=== PATIENT | male | born 1990 ===

== ENCOUNTER 2018-01-11 11:14 | Emergency (ER) | payer SELFPAY ==
[2018-01-11 11:26] VITALS: RESP 16; TEMP 98.4; O2SAT 98
[2018-01-11 12:06] LABS: URINE BILIRUBIN NEGATIVE (NEGATIVE); URINE BLOOD NEGATIVE (NEGATIVE); URINE CLARITY Clear (Clear); URINE COLOR Straw (YELLOW); URINE GLUCOSE (UA) NORMAL (Normal); URINE LEUKOCYTE ESTERASE NEG Leu/uL (Negative); URINE PROTEIN NEGATIVE (NEGATIVE); URINE UROBILINOGEN NORMAL mg/dL (0.2-1.0)
[2018-01-11] MEDS ORDERED: cefTRIAXone (Rocephin) 250 mg Inj IM STA (12:22)
--- NOTE | 2018-01-11 12:26 | C.PDOC ---
History Of Present Illness 27-year-old male, comes in for evaluation of burning on urination and discomfort since yesterday. Patient admits to having unprotected sex the day prior to onset of symptoms. Patient notes a previous history of STDs. Otherwise , pt denies fever, chills, recent illness, sore throat, neck pain, cough, CP, SOB, abd. pain, V/D, back pain, hematuria, denies penile lesions, testicular pain or swelling. Ambulate to Ed for evaluation, not in any apparent distress. Time Seen by Provider: 01/11/18 11:24 Chief Complaint (Nursing): Male Genitourinary History Per: Patient History/Exam Limitations: no limitations Past Medical History Reviewed: Historical Data, Nursing Documentation, Vital Signs Vital Signs: Last Vital Signs Temp 98.4 F 01/11/18 11:24 Pulse 82 01/11/18 12:56 Resp 16 01/11/18 12:56 BP 120/81 01/11/18 12:56 Pulse Ox 98 01/11/18 12:56 - Medical History PMH: Asthma Family History: States: No Known Family Hx - Social History Hx Alcohol Use: No Hx Substance Use: No - Immunization History Hx Tetanus Toxoid Vaccination: No Hx Influenza Vaccination: No Hx Pneumococcal Vaccination: No Review Of Systems Constitutional: Negative for: Fever, Chills Gastrointestinal: Negative for: Nausea, Vomiting Genitourinary: Positive for: Dysuria. Negative for: Frequency, Hematuria, Penile Discharge, Rash, Penile Pain Skin: Negative for: Lesions Physical Exam - Physical Exam Appears: Non-toxic, No Acute Distress Skin: Normal Color, Warm, Dry, No Rash Eye(s): bilateral: PERRL Nose: No Flaring Oral Mucosa: Moist Throat: No Erythema Neck: Supple Gastrointestinal/Abdominal: Soft, No Tenderness, No Distention, No Guarding, No Rebound Back: No CVA Tenderness Male Genital: Other (refused) Extremity: No Tenderness, No Deformity, No Swelling Neurological/Psych: Oriented x3, Normal Speech ED Course And Treatment O2 Sat by Pulse Oximetry: 98 (RA) Pulse Ox Interpretation: Normal Progress Note: On re-evaluatio, pt is afebrile, hemodynamicalys table. Non- toxic. ENT: no acute findings. Abd: benig, (-) guarding, (-) rebound. back: ( -) CVA tenderness. UA results review and appears normal. GC- pending. Pt has clinical findings c/w urethritis. Pt request STD tx now. Pt advised to encourage partner to be checked and tx as well. return to ED f any worsening or new changes. Disposition - Disposition Referrals: [facility] [Outside] Disposition: HOME/ ROUTINE Disposition Time: 12:24 Condition: STABLE Additional Instructions: CONSIDER PARTNER TO BE CHECKED AND TREATED NEED FOLLOW UP WITH PMD IN 2-3 DAYS FOR RE-EVALUATION. RETURN TO ED IF ANY WORSENING OR NEW CHANGES. Instructions: Urethritis, STD Prevention Forms: [employer] ([place]) - Clinical Impression Clinical Impression: Urethritis - Scribe Statement The provider has reviewed the documentation as recorded by the Scribe (Kareem Malloy) All medical record entries made by the Scribe were at my direction and personally dictated by me. I have reviewed the chart and agree that the record accurately reflects my personal performance of the history, physical exam, medical decision making, and the department course for this patient. I have also personally directed, reviewed, and agree with the discharge instructions and disposition.
--- NOTE | 2018-01-11 12:27 | C.PDOC ---
Time Seen by Provider: 01/11/18 11:24 Chief Complaint (Nursing): Male Genitourinary Past Medical History Vital Signs: Last Vital Signs Temp 98.4 F 01/11/18 11:24 Pulse 81 01/11/18 11:24 Resp 16 01/11/18 11:24 BP 118/77 01/11/18 11:24 Pulse Ox 98 01/11/18 11:24 - Medical History PMH: Asthma - Social History Hx Alcohol Use: No Hx Substance Use: No - Immunization History Hx Tetanus Toxoid Vaccination: No Hx Influenza Vaccination: No Hx Pneumococcal Vaccination: No ED Course And Treatment O2 Sat by Pulse Oximetry: 98 Pulse Ox Interpretation: Normal Progress Note: On re-evaluatio, pt is afebrile, hemodynamicalys table. Non- toxic. ENT: no acute findings. Abd: benig, (-) guarding, (-) rebound. back: ( -) CVA tenderness. UA results review and appears normal. GC- pending. Pt has clinical ifndings c/w urethritis. Pt request STD tx now. Pt advised to encourage partner to be checked and tx as well. return to ED f any worsening or new changes. Disposition Counseled Patient/Family Regarding: Studies Performed, Diagnosis, Need For Followup - Disposition Referrals: [facility] [Outside] Disposition: HOME/ ROUTINE Disposition Time: 12:24 Condition: STABLE Additional Instructions: CONSIDER PARTNER TO BE CHECKED AND TREATED NEED FOLLOW UP WITH PMD IN 2-3 DAYS FOR RE-EVALUATION. RETURN TO ED IF ANY WORSENING OR NEW CHANGES. Instructions: Urethritis, STD Prevention - Clinical Impression Clinical Impression: Urethritis
[2018-01-11 12:56] VITALS: BP 120/81; PULSE 82
== END 2018-01-11 12:56 | disposition home or self-care (01) ==
LOC: C.ER 11:14
DX: N34.2 Other urethritis (principal)

== ENCOUNTER 2018-04-01 13:11 | Emergency (ER) | payer MEDICAID, OTHER ==
[2018-04-01 13:19] VITALS: BP 119/76; PULSE 87; RESP 18; TEMP 97.5; O2SAT 100
[2018-04-01] MEDS ORDERED: cefTRIAXone (Rocephin) 250 mg Inj IM STA (13:27)
[2018-04-01] MEDS ORDERED: cefTRIAXone (Rocephin) 250 mg Inj IM ONE (13:45)
--- NOTE | 2018-04-01 14:02 | C.PDOC ---
History Of Present Illness 27-year-old male comes in for evaluation of burning on urination and discomfort since this morning. Patient admits to having unprotected sex couple days prior. Patient denies fever, chills, sore throat, neck pain, abdominal pain, back pain , hematuria. Denies penile lesions, testicular pain or swelling. Time Seen by Provider: 04/01/18 13:24 Chief Complaint (Nursing): Male Genitourinary History Per: Patient History/Exam Limitations: no limitations Onset/Duration Of Symptoms: Hrs Current Symptoms Are (Timing): Still Present Associated Symptoms: Urinary Symptoms (burning on urination and discomfort ). denies: Fever, Chills Additional History Per: Patient Past Medical History Reviewed: Historical Data, Nursing Documentation, Vital Signs Vital Signs: Last Vital Signs Temp 97.5 F L 04/01/18 13:17 Pulse 87 04/01/18 13:17 Resp 18 04/01/18 13:17 BP 119/76 04/01/18 13:17 Pulse Ox 100 04/01/18 16:47 - Medical History PMH: Asthma Surgical History: No Surg Hx Family History: States: Unknown Family Hx - Social History Hx Alcohol Use: Yes Hx Substance Use: No - Immunization History Hx Tetanus Toxoid Vaccination: No Hx Influenza Vaccination: No Hx Pneumococcal Vaccination: No Review Of Systems Constitutional: Negative for: Fever, Chills ENT: Negative for: Throat Pain Gastrointestinal: Negative for: Abdominal Pain Genitourinary: Positive for: Other (burning on urination ). Negative for: Hematuria Musculoskeletal: Negative for: Neck Pain, Back Pain Physical Exam - Physical Exam Appears: Non-toxic, No Acute Distress Skin: Normal Color, Warm, Dry Head: Atraumatic, Normacephalic Eye(s): bilateral: Normal Inspection Oral Mucosa: Moist Neck: Supple Chest: Symmetrical, No Deformity, No Tenderness Cardiovascular: Rhythm Regular, No Murmur Respiratory: Normal Breath Sounds, No Rales, No Rhonchi, No Wheezing Gastrointestinal/Abdominal: Soft, No Tenderness, No Guarding, No Rebound Male Genital: Other (refused) Extremity: Normal ROM, Capillary Refill (less than 2 seconds) Neurological/Psych: Oriented x3, Normal Speech, Normal Cognition ED Course And Treatment O2 Sat by Pulse Oximetry: 100 (on RA) Pulse Ox Interpretation: Normal Medical Decision Making Medical Decision Making: Patient with concern for STDs but refusing medical exam, stating he just wants to be treated. I explained he will need to follow up in the STD clinic for full testing. Orders placed urine cultures G/C. 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 - Scribe Statement The provider has reviewed the documentation as recorded by the Scribe (Bhumika Robertson) All medical record entries made by the Scribe were at my direction and personally dictated by me. I have reviewed the chart and agree that the record accurately reflects my personal performance of the history, physical exam, medical decision making, and the department course for this patient. I have also personally directed, reviewed, and agree with the discharge instructions and disposition.
[2018-04-01 14:09] LABS: SQUAMOUS EPITHIAL < 1 /hpf (0-5); URINE BILIRUBIN NEGATIVE (NEGATIVE); URINE BLOOD NEGATIVE (NEGATIVE); URINE CLARITY Clear (Clear); URINE COLOR Yellow (YELLOW); URINE GLUCOSE (UA) NORMAL (Normal); URINE LEUKOCYTE ESTERASE NEG Leu/uL (Negative); URINE PROTEIN NEGATIVE (NEGATIVE); URINE UROBILINOGEN NORMAL mg/dL (0.2-1.0)
== END 2018-04-01 14:18 | disposition home or self-care (01) ==
LOC: C.ER 13:11
DX: N34.2 Other urethritis (principal)
CPT/HCPCS: 81001; 87491; 87591; 96372; 99283; J0696

== ENCOUNTER 2018-04-28 10:52 | Emergency (ER) | payer MEDICAID ==
[2018-04-28 11:03] VITALS: BP 116/77; PULSE 73; RESP 16; TEMP 98.9; O2SAT 98
[2018-04-28 11:38] LABS: SQUAMOUS EPITHIAL < 1 /hpf (0-5); URINE BILIRUBIN NEGATIVE (NEGATIVE); URINE BLOOD NEGATIVE (NEGATIVE); URINE CLARITY Clear (Clear); URINE COLOR Yellow (YELLOW); URINE GLUCOSE (UA) NORMAL (Normal); URINE LEUKOCYTE ESTERASE NEG Leu/uL (Negative); URINE PROTEIN NEGATIVE (NEGATIVE); URINE UROBILINOGEN NORMAL mg/dL (0.2-1.0)
[2018-04-28] MEDS ORDERED: cefTRIAXone (Rocephin) 250 mg Inj IM STA (11:48)
--- NOTE | 2018-04-28 11:48 | C.PDOC ---
History Of Present Illness 27-YEAR-OLD MALE, PRESENTS TO THE EMERGENCY DEPARTMENT WITH COMPLAINTS OF NEW ONSET DYSURIA SINCE THIS MORNING. ONSET AFTER UNPROTECTED SEX LAST NIGHT. PS CONCERN FOR POSSIBLE STD EXPOSURE. DENIES OTHER ASSOC SX. UNK STATUS OF PARTNER EXAM NAD LOADER CARLOS TONY. CIRCUMSCISED, NO LESIONS, DC, RASH. REMAINDER NEG PT ADVISED NEED FOR OTHER STD EVAL. REFERRAL STD CLINIC Time Seen by Provider: 04/28/18 11:27 Chief Complaint (Nursing): Male Genitourinary History Per: Patient History/Exam Limitations: no limitations Current Symptoms Are (Timing): Still Present Past Medical History Reviewed: Historical Data, Nursing Documentation, Vital Signs Vital Signs: Last Vital Signs Temp 98.9 F 04/28/18 11:00 Pulse 73 04/28/18 11:00 Resp 16 04/28/18 11:00 BP 116/77 04/28/18 11:00 Pulse Ox 98 04/28/18 11:48 - Medical History PMH: Asthma Family History: States: No Known Family Hx - Social History Hx Alcohol Use: No Hx Substance Use: No - Immunization History Hx Tetanus Toxoid Vaccination: No Hx Influenza Vaccination: No Hx Pneumococcal Vaccination: No Review Of Systems Constitutional: Negative for: Fever, Chills Respiratory: Negative for: Shortness of Breath Gastrointestinal: Negative for: Nausea, Vomiting Genitourinary: Positive for: Dysuria. Negative for: Frequency, Penile Discharge , Rash Musculoskeletal: Negative for: Back Pain Skin: Negative for: Rash Physical Exam - Physical Exam Appears: Non-toxic, No Acute Distress Skin: Normal Color, Warm, Dry, No Rash Head: Atraumatic Eye(s): bilateral: Normal Inspection Nose: Normal Oral Mucosa: Moist Lips: Normal Appearing Neck: Normal ROM Cardiovascular: Rhythm Regular, No Murmur Respiratory: Normal Breath Sounds, No Accessory Muscle Use Gastrointestinal/Abdominal: Soft, No Tenderness Male Genital: Other ( LOADER CARLOS TONY. CIRCUMSCISED, NO LESIONS, DC, RASH.) Neurological/Psych: Oriented x3, Normal Speech ED Course And Treatment O2 Sat by Pulse Oximetry: 98 (RA) Pulse Ox Interpretation: Normal Medical Decision Making Medical Decision Making: PT ADVISED NEED FOR OTHER STD EVAL. REFERRAL STD CLINIC Disposition Counseled Patient/Family Regarding: Studies Performed, Diagnosis, Need For Followup - Disposition [facility] [Outside] [facility] [Other] Disposition: HOME/ ROUTINE Disposition Time: 11:47 Condition: IMPROVED Instructions: Sexually-Transmitted Diseases (DC) Forms: [employer] (Turkish) - Clinical Impression Clinical Impression: Dysuria, Possible exposure to STD - Scribe Statement The provider has reviewed the documentation as recorded by the Scribe (Kareem Aceves) All medical record entries made by the Scribe were at my direction and personally dictated by me. I have reviewed the chart and agree that the record accurately reflects my personal performance of the history, physical exam, medical decision making, and the department course for this patient. I have also personally directed, reviewed, and agree with the discharge instructions and disposition.
== END 2018-04-28 12:08 | disposition home or self-care (01) ==
LOC: C.ER 10:52
DX: R30.0 Dysuria (principal); Z20.2 Contact with and (suspected) exposure to infections with a predominantly sexual mode of transmission
CPT/HCPCS: 81001; 87086; 87491; 87591; 96372; 99283; J0696

== ENCOUNTER 2018-07-22 07:28 | Emergency (ER) | payer MEDICAID ==
[2018-07-22 07:34] VITALS: BP 121/82; PULSE 62; RESP 18; TEMP 98.4; O2SAT 100
[2018-07-22] MEDS ORDERED: cefTRIAXone (Rocephin) 250 mg Inj IM STA (07:41)
--- NOTE | 2018-07-22 07:45 | C.PDOC ---
History Of Present Illness 28 years old male presents to ED for complaints of dysuria that began today. Patient reports having unprotected intercourse 2 days ago and is not sure if the partner had any disease. Denies discharge, testicular swelling or tenderness. Time Seen by Provider: 07/22/18 07:36 Chief Complaint (Nursing): Male Genitourinary History Per: Patient History/Exam Limitations: no limitations Onset/Duration Of Symptoms: Hrs Current Symptoms Are (Timing): Still Present Associated Symptoms: Urinary Symptoms. denies: Fever, Chills, Nausea, Vomiting , Diarrhea Alleviating Factors: None Recent travel outside of the [place]: No Past Medical History Reviewed: Historical Data, Nursing Documentation, Vital Signs Vital Signs: Last Vital Signs Temp 98.4 F 07/22/18 07:32 Pulse 62 07/22/18 07:32 Resp 18 07/22/18 07:32 BP 121/82 07/22/18 07:32 Pulse Ox 100 07/22/18 08:28 - Medical History PMH: Asthma Surgical History: No Surg Hx Family History: States: Unknown Family Hx - Social History Hx Alcohol Use: Yes Hx Substance Use: No - Immunization History Hx Tetanus Toxoid Vaccination: No Hx Influenza Vaccination: No Hx Pneumococcal Vaccination: No Review Of Systems Constitutional: Negative for: Fever, Chills Respiratory: Negative for: Shortness of Breath Gastrointestinal: Negative for: Abdominal Pain Genitourinary: Positive for: Dysuria. Negative for: Penile Discharge, Scrotal Pain, Penile Pain Skin: Negative for: Rash Neurological: Negative for: Weakness, Numbness Physical Exam - Physical Exam Appears: Well, Non-toxic, No Acute Distress Skin: Normal Color, Warm, Dry, No Rash Head: Atraumatic, Normacephalic Eye(s): bilateral: Normal Inspection, EOMI Oral Mucosa: Moist Neck: Normal ROM Chest: Symmetrical, No Tenderness Cardiovascular: Rhythm Regular, No Murmur Respiratory: Normal Breath Sounds, No Rales, No Rhonchi, No Wheezing Gastrointestinal/Abdominal: Bowel Sounds (Active ), Soft, No Tenderness, No Distention, No Guarding Male Genital: No Testicular Tenderness, No Testicular Swelling, No Scrotal Swelling, Circumcised Extremity: Bilateral: Atraumatic, Normal Color And Temperature, Normal ROM Neurological/Psych: Oriented x3, Normal Speech Gait: Steady ED Course And Treatment O2 Sat by Pulse Oximetry: 100 (RA) Pulse Ox Interpretation: Normal Medical Decision Making Medical Decision Making: Impression: possible STD exposure, dysuria. Exam performed with sleep tech RN Peter Avilez Plan: * UA and culture * GC/c culture * Rocephin * Zithromax Patient advised on safe sex practice and will contact with results in 2-3 days. Advise to notify partner(s) and to follow up in the clinic. Disposition Counseled Patient/Family Regarding: Diagnosis, Need For Followup - Disposition Referrals: [facility] [Outside] [facility] [Outside] Disposition: HOME/ ROUTINE Disposition Time: 08:10 Condition: GOOD Additional Instructions: You have been treated for possible STD exposure with Rocephin and Zithromax. Recommend no intercourse for one week and to notify your partner(s) to get tested at the clinic. 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 - Scribe Statement The provider has reviewed the documentation as recorded by the Scribe Selin Weiner All medical record entries made by the Caylaibjw were at my direction and personally dictated by me. I have reviewed the chart and agree that the record accurately reflects my personal performance of the history, physical exam, medical decision making, and the department course for this patient. I have also personally directed, reviewed, and agree with the discharge instructions and disposition.
[2018-07-22 08:03] LABS: URINE BILIRUBIN NEGATIVE (NEGATIVE); URINE BLOOD NEGATIVE (NEGATIVE); URINE CLARITY Clear (Clear); URINE COLOR Yellow (YELLOW); URINE GLUCOSE (UA) NORMAL (Normal); URINE LEUKOCYTE ESTERASE NEG Leu/uL (Negative); URINE PROTEIN NEGATIVE (NEGATIVE)
== END 2018-07-22 08:15 | disposition home or self-care (01) ==
LOC: C.ER 07:28
DX: N34.2 Other urethritis (principal); Z20.2 Contact with and (suspected) exposure to infections with a predominantly sexual mode of transmission
CPT/HCPCS: 81001; 87086; 87491; 87591; 96372; 99283; J0696